=== PATIENT | male | born 1970 | race African-American/Black ===

== ENCOUNTER 2023-04-25 17:19 | Emergency (ER) | payer OTHER, SELFPAY ==
[2023-04-25 17:21] VITALS: BP 155/82; PULSE 86; RESP 18; TEMP 36.8; O2SAT 96
--- NOTE | 2023-04-25 18:07 | ED.EAR ---
HPI - Ear Problem General Chief complaint: Ear Stated complaint: Right Ear Pain Time Seen by Provider: 04/25/23 17:23 History of Present Illness HPI Narrative: 52-year-old male presented the ED for evaluation of of right ear pain. Patient states the ear pain started approximately 3 days ago. Patient states the pain does radiate to his sinuses. Patient does report some sinus drainage. Patient denies any change in hearing in that ear. Patient does report history of sinus infection. Related Data Allergies Allergy/AdvReac Type Severity Reaction Status Date / Time No Known Allergies Allergy Verified 04/25/23 18:48 Review of Systems Review of Systems: All systems reviewed & are unremarkable except as noted in HPI and below Exam Narrative: APPEARANCE: Well appearing, no pain, no distress, well-nourished. HEAD: normocephalic, atraumatic. EYES: PERRLA/EOMI, conjunctivae clear. NOSE: Normal no drainage EARS: Right TM erythema with bulging of the right TM THROAT: Pharynx clear, no exudate. NECK: Supple. No adenopathy, no masses. RESPIRATORY: Airway patent, respirations nonlabored. Clear to auscultation bilaterally, no rales, rhonchi, wheezing. CARDIOVASCULAR: Regular rate and rhythm without murmurs rubs or gallops. ABDOMINAL: Soft, nontender, nondistended, normal bowel sounds MUSCULOSKELETAL: Moves all extremities. Strength/ROM intact, No edema, No calf tenderness. NEURO: Alert. Cranial nerves II through XII intact. SKIN: Warm, dry. Normal Color Course Course Emergency Course: 52-year-old male presented ED for evaluation of right ear pain. Right TM is concerning for otitis media. Patient was started on antibiotics and advised to take medications for pain control including ibuprofen and Benadryl to help with his sinus congestion. Patient was encouraged of close follow-up with his primary care physician. All questions concerns were addressed. Patient was comfortable with the plan for discharge and close follow-up Vital Signs Vital signs: Vital Signs Temperature 98.2 F 04/25/23 17:21 Pulse Rate 86 04/25/23 17:21 Respiratory Rate 18 04/25/23 17:21 Blood Pressure 155/82 H 04/25/23 17:21 Pulse Oximetry 96 04/25/23 17:21 Oxygen Delivery Room Air 04/25/23 17:21 Temperature 98.2 F 04/25/23 17:21 Pulse Rate 86 04/25/23 17:21 Respiratory Rate 18 04/25/23 17:21 Blood Pressure 155/82 H 04/25/23 17:21 Pulse Oximetry 96 04/25/23 17:21 Oxygen Delivery Room Air 04/25/23 17:21 Medical Decision Making Vital Signs Vital Signs: Vital Signs Temperature 98.2 F 04/25/23 17:21 Pulse Rate 86 04/25/23 17:21 Respiratory Rate 18 04/25/23 17:21 Blood Pressure 155/82 H 04/25/23 17:21 Pulse Oximetry 96 04/25/23 17:21 Oxygen Delivery Room Air 04/25/23 17:21 Temperature 98.2 F 04/25/23 17:21 Pulse Rate 86 04/25/23 17:21 Respiratory Rate 18 04/25/23 17:21 Blood Pressure 155/82 H 04/25/23 17:21 Pulse Oximetry 96 04/25/23 17:21 Oxygen Delivery Room Air 04/25/23 17:21 Discharge Plan Discharge Clinical Impression: Otitis media Patient Disposition: Home, Self-Care Condition: Stable Instructions: Antibiotic Form, Earache (ED) Additional Instructions: Antibiotic as directed till completed. Scheduled epinephrine for pain control. Benadryl as needed for sinus congestion. Have close follow-up with your primary care physician. Prescriptions: New amoxicillin-pot clavulanate 875-125 mg tablet 1 tablet PO Q12H Qty: 14 0RF Follow-up/Referrals: Sylvie,Robert Guzman [Primary Care Provider] -
[2023-04-25] MEDS: IBUPROFEN 600 MG TABLET PO (18:44)
[2023-04-25] MEDS: AMOXICILLIN/CLAVULANATE K 875-125 MG TAB 1 TABLET PO (18:44)
== END 2023-04-25 18:47 | disposition home or self-care (01) ==
PROVIDERS: Emergency Provider Emergency Medicine; PCP Internal Medicine Infectious Disease
DX: H66.91 Otitis media, unspecified, right ear (principal)
CPT/HCPCS: 99283; A9270

== ENCOUNTER 2023-12-08 20:31 | Emergency (ER) | payer OTHER, MEDICAID, SELFPAY ==
--- NOTE | ~2023-12-08 | CT_ITS ---
EXAMINATION: CT facial bones w con DATE: 12/08/2023 22:15 INDICATION: left sided facial swelling, fever, dentalgia . TECHNIQUE: Computed tomography (CT) of the facial bones and maxillofacial region was performed with 1 00 mL Omnipaque 350 intravenous contrast. Automated exposure control and iterative reconstruction sandro hnique were employed. The dose-length product was 373.72 mGy-cm. COMPARISON: None. FINDINGS: Soft Tissues: Mild inflammatory changes at the left cheek and lower face, with minimal extension to the masseter muscle and plastics repairer space. No fluid collection. Facial bones: No acute fracture. No lytic or blastic process. Eyes: The globes are intact. The soft tissue planes of the orbits are maintained. Paranasal Sinuses: Poorly pneumatized right mastoid air cells. No middle ear fluid. Moderate left ma xillary mucosal thickening. Minimal mucosal thickening and small retention cyst/polyp in the right sp henoid sinus. Mild mucosal thickening in the ethmoid sinuses Findings dental caries. Periodontal disease.. Foreign Bodies: No radiopaque foreign bodies. Other Findings: None. IMPRESSION: No evidence of acute facial bone fracture. No odontogenic or facial abscess detected. Left cheek and lower face soft tissue swelling with minimal involvement of the plastics repairer space. Left maxillary mucoperiosteal disease. Dental caries and periodontal disease. Reviewed, dictated and finalized at location K.
[2023-12-08 20:38] VITALS: BP 177/107; PULSE 89; RESP 20; TEMP 37.3; O2SAT 98
[2023-12-08 21:05] VITALS: RESP 16; O2SAT 98
--- NOTE | 2023-12-08 21:20 | ED.GENADULT ---
HPI - General Adult General Chief complaint: Unspecified Stated complaint: sinus congestion, jaw pain Time Seen by Provider: 12/08/23 21:12 Source: patient Mode of arrival: ambulatory Limitations: no limitations History of Present Illness HPI narrative: This is a 53 year old male that presents to the ER for left sided facial swelling. Ongoing today. Associated with fever, congestion, sore throat and dentalgia. Denies dysphagia. Related Data Allergies Allergy/AdvReac Type Severity Reaction Status Date / Time No Known Allergies Allergy Verified 12/08/23 20:46 Review of Systems Review of Systems: CONSTITUTIONAL: Reports fever ENT: Reports congestion, sore throat, and otalgia. All systems reviewed & are unremarkable except as noted in HPI and below PMFSH Past Medical History Medical History (Updated 12/08/23 @ 22:40 by Dixie Tejeda PA-C) History of diabetes mellitus History of hypertension Social History Social History (Updated 12/08/23 @ 21:21 by Dixie Tejeda PA-C) Substance use: never Exam Narrative: GENERAL: Well-appearing, well-nourished, and in no acute distress. HEAD: Normocephalic, atraumatic. EYES: EOMI. ENT: Nares clear, no rhinorrhea or epistaxis. Mucous membranes moist. Oropharynx with redness, without tonsillar hypertrophy, exudate or other lesions. Bilateral TMs pearly vences non-bulging. No trismus. Floor of mouth is soft. Tooth #15 tender to palpation without surrounding edema or erythema to suggest abscess. Mild facial swelling of the left maxilla NECK: Supple. No adenopathy or masses. CHEST: Clear to auscultation. No respiratory distress. No wheezes rales or rhonchi HEART: Regular rate and rhythm. No murmur heard. Normal peripheral pulses. EXTREMITIES: Normal range of motion. No edema. SKIN: Warm, dry, no rash. NEURO: No focal deficits. Alert and oriented x3. PSYCH: Normal mood and affect Course Course Emergency Course: Patient updated on workup and agrees with plan of care Vital Signs Vital signs: Vital Signs Temperature 99.2 F 12/08/23 20:38 Pulse Rate 89 12/08/23 20:38 Respiratory Rate 20 12/08/23 20:38 Blood Pressure 177/107 H 12/08/23 20:38 Pulse Oximetry 98 12/08/23 20:38 Oxygen Delivery Room Air 12/08/23 20:38 Temperature 99.2 F 12/08/23 20:38 Pulse Rate 89 12/08/23 20:38 Respiratory Rate 16 12/08/23 21:05 Blood Pressure 177/107 H 12/08/23 20:38 Pulse Oximetry 98 12/08/23 21:05 Oxygen Delivery Room Air 12/08/23 20:38 Medical Decision Making MDM Narrative Medical decision making narrative: Patient presents to the emergency department for left-sided facial swelling and pain. He is afebrile and nontoxic appearing. Hypertensive, patient does report known history of hypertension. He has not been taking his medications. CBC without leukocytosis. ESR is not elevated. CRP mildly elevated. Normal kidney function. Blood sugar elevated, he does report history of DM. CT facial bones shows sinusitis, dental disease, without evidence of abscess. Patient updated on workup and agrees with plan of care. He is to follow up with primary provider. He was given warnings to return to the ER Differential Diagnosis Differential Diagnosis: sinusitis, dental infection Vital Signs Vital Signs: Vital Signs Temperature 99.2 F 12/08/23 20:38 Pulse Rate 89 12/08/23 20:38 Respiratory Rate 20 12/08/23 20:38 Blood Pressure 177/107 H 12/08/23 20:38 Pulse Oximetry 98 12/08/23 20:38 Oxygen Delivery Room Air 12/08/23 20:38 Temperature 99.2 F 12/08/23 20:38 Pulse Rate 89 12/08/23 20:38 Respiratory Rate 16 12/08/23 21:05 Blood Pressure 177/107 H 12/08/23 20:38 Pulse Oximetry 98 12/08/23 21:05 Oxygen Delivery Room Air 12/08/23 20:38 Lab Data Lab results reviewed: Yes I reviewed the patient's lab results. 12/08/23 21:40 12/08/23 21:40 Labs: Lab Results 12/08/23 R
[2023-12-08] MEDS: KETOROLAC 15 MG/ML VIAL (*BKC) IV PUSH (21:40)
[2023-12-08 21:47] LABS: Basophils Percent Auto 0.2 % (0.2-1.2); Eosinophils Absolute Auto 0.1 K/mm3 (0-0.3); Eosinophils Percent Auto 0.6 % (0-4.4); Hematocrit 46.7 % (42.0-52.0); Hemoglobin 15.3 g/dL (14.0-18.0); Immature Granulocyte Absolute 0.03 K/mm3 (0.00-0.031); Immature Granulocyte Percent A 0.3 % (0-0.5); Lymphocytes Absolute Auto 2.79 K/mm3 (0.9-3.2); Mean Corpuscular HGB Conc 32.8 g/dl (32-36); Mean Corpuscular Hemoglobin 32.8 pg (26-34); Mean Corpuscular Volume 100.2 fl (80-100); Mean Platelet Volume 11.8 fl (7.4-10.4); Monocytes Absolute Auto 0.8 K/mm3 (0.1-0.6); Monocytes Percent Auto 8.6 % (2.6-8.5); Neutrophils Absolute Auto 5.3 K/mm3 (1.3-6.7); Neutrophils Percent Auto 59.3 % (45.5-73.1); Platelet Count Result 169 k/mm3 (150-375); Red Blood Count 4.66 M/mm3 (4.6-6.20); Red Cell Distribution Width 13.2 % (11.5-14.5)
[2023-12-08 22:00] LABS: Anion Gap 5 mmol/L (4-12); Blood Urea Nitrogen 12 mg/dL (9-20); CRP 2.6 mg/dL (<1.0); Calcium 8.8 mg/dL (8.4-10.2); Carbon Dioxide 26 mmol/L (22-30); Chloride 106 mmol/L (98-107); Estimated CRCL calculation 101 ml/min; Estimated Glomerular Filt Rate > 60; Glucose 195 mg/dL (65-110); Potassium 3.9 mmol/L (3.4-5.0); Sodium 137 mmol/L (137-145)
--- NOTE | 2023-12-08 22:04 | PC.NURSE ---
Patient taken to CT at this time.
[2023-12-08 22:26] LABS: Erythrocyte Sedimentation Rate 15 mm/hr (0-20)
[2023-12-08] MEDS: AMOXICILLIN/CLAVULANATE K 875-125 MG TAB 1 TABLET PO (22:57)
[2023-12-08 23:02] VITALS: BP 156/119; PULSE 80; RESP 17; TEMP 36.9; O2SAT 99
== END 2023-12-08 23:04 | disposition home or self-care (01) ==
PROVIDERS: Emergency Provider Physician Assistant; PCP Internal Medicine Infectious Disease
DX: J01.00 Acute maxillary sinusitis, unspecified (principal); K08.89 Other specified disorders of teeth and supporting structures; I10 Essential (primary) hypertension; E11.9 Type 2 diabetes mellitus without complications
CPT/HCPCS: 36415; 70487; 80048; 85025; 85652; 86140; 96374; 99284; A9270; J1885; Q9967